=== PATIENT | male | born 1970 | race Caucasian/White ===

== ENCOUNTER 2020-05-15 19:49 | Observation (INO) | payer OTHER ==
[~2020-05-15] VITALS: Ht 185.4 cm; Wt 111.0 kg
[2020-05-15 20:30] LABS: HEMATOCRIT 43.6 % (39.0-50.0); HEMOGLOBIN 14.3 g/dl (14.0-18.0); IMMATURE GRANULOCYTES 0.3 % (0.0-5.0); MEAN CELL VOLUME 87.9 fL CALC (80.0-100.0); MEAN CORPUSCULAR HGB 28.8 pG CALC (26.0-32.0); MEAN CORPUSCULAR HGB CONC 32.8 g/dL CAL (32.0-36.0); NEUT# 5.27 thou/uL (1.82-7.42); RED BLOOD COUNT 4.96 mill/uL (4.70-6.10); RED CELL DISTRI WIDTH 12.7 % (11.5-15.5)
[2020-05-15 20:42] LABS: ALBUMIN 4.5 g/dL (3.2-5.0); ALKALINE PHOSPHATASE 67 u/l (38-126); ANION GAP 11 (6-22 (CALC)); BILIRUBIN, TOTAL 0.7 mg/dL (0.0-1.4); BUN 12 mg/dL (9-20); BUN/CREATININE RATIO 14 (12-20 (CALC)); CARBON DIOXIDE 27 mmol/l (22-30); CHLORIDE 103 mmol/l (95-108); CREATININE 0.8 mg/dL (0.7-1.3); GFR > 60 ML/MIN (>=60 (CALC)); GFR FOR AFR.AMER. > 60 ML/MIN (>=60 (CALC)); SGOT/AST 24 u/l (17-59); SODIUM 138 mmol/l (137-146); TOTAL PROTEIN 7.2 g/dL (6.3-8.2)
[2020-05-15 20:55] LABS: MYOGLOBIN 42 ng/mL (0 - 121)
[2020-05-15] MEDS ORDERED: DEPAKOTE500 MG PO (21:15)
[2020-05-15] MEDS ORDERED: LISINOPRIL2.5 MG PO (21:15)
[2020-05-15] MEDS ORDERED: ATOMOXETINE PO (21:18)
[2020-05-15] MEDS ORDERED: GABAPENTIN800 MG PO (21:19)
[2020-05-15 21:45] LABS: URINE BILIRUBIN - DIPSTICK NEGATIVE (NEGATIVE); URINE BLOOD DIPSTICK NEGATIVE (NEGATIVE); URINE COLOR YELLOW; URINE GLUCOSE - DIPSTICK NEGATIVE (NEGATIVE); URINE KETONE NEGATIVE (NEGATIVE); URINE LEUK ESTERASE NEGATIVE (NEGATIVE); URINE NITRITE - DIPSTICK NEGATIVE (Negative); URINE PH 6.5 (4.5-8.0); URINE PROTEIN - DIPSTICK NEGATIVE (NEG-TRACE); URINE SPECIFIC GRAVITY 1.025
[2020-05-15 22:25] VITALS: BP 127/69
[2020-05-16 00:25] VITALS: BP 124/71
[2020-05-16 04:30] VITALS: BP 106/60
[2020-05-16 06:53] LABS: HEMATOCRIT 41.9 % (39.0-50.0); HEMOGLOBIN 13.7 g/dl (14.0-18.0); IMMATURE GRANULOCYTES 0.3 % (0.0-5.0); MEAN CORPUSCULAR HGB 28.8 pG CALC (26.0-32.0); MEAN CORPUSCULAR HGB CONC 32.7 g/dL CAL (32.0-36.0); NEUT# 4.31 thou/uL (1.82-7.42); RED BLOOD COUNT 4.76 mill/uL (4.70-6.10); RED CELL DISTRI WIDTH 12.8 % (11.5-15.5)
[2020-05-16 07:03] LABS: ALBUMIN 3.9 g/dL (3.2-5.0); ALKALINE PHOSPHATASE 68 u/l (38-126); ANION GAP 13 (6-22 (CALC)); BILIRUBIN, TOTAL 0.6 mg/dL (0.0-1.4); BUN 11 mg/dL (9-20); BUN/CREATININE RATIO 13 (12-20 (CALC)); CALCULATED LDLCHOLESTEROL 115 mg/dL (62-129 (CALC)); CARBON DIOXIDE 26 mmol/l (22-30); CHLORIDE 103 mmol/l (95-108); CHOLESTEROL HDL RATIO 5.5 (<4.4 (CALC)); CREATININE 0.9 mg/dL (0.7-1.3); GFR > 60 ML/MIN (>=60 (CALC)); GFR FOR AFR.AMER. > 60 ML/MIN (>=60 (CALC)); HDL CHOLESTEROL 32 mg/dL (>=40); POTASSIUM 3.9 mmol/l (3.5-5.1); SGOT/AST 21 u/l (17-59); SODIUM 138 mmol/l (137-146); TOTAL CHOLESTEROL 179 mg/dl (0-199); TOTAL PROTEIN 6.2 g/dL (6.3-8.2); TOTAL TRIGLYCERIDES 157 mg/dl (30-149); VLDL CHOLESTROL 31 mg/dl (5-56 (CALC))
[2020-05-16 08:00] VITALS: BP 115/68
[2020-05-16 10:52] VITALS: BP 113/61
== END 2020-05-16 14:10 | DRG 312 ==
LOC: ED 19:49 → ED-I 21:32 → ED 21:52 → MS2 21:53
PROVIDERS: Emergency Medicine; Nurse Practitioner; ADMIT Internal Medicine; ATTEND Internal Medicine
DX: R55 Syncope and collapse (principal); R07.9 Chest pain, unspecified; I10 Essential (primary) hypertension; G40.909 Epilepsy, unspecified, not intractable, without status epilepticus; T42.76XA Underdosing of unspecified antiepileptic and sedative-hypnotic drugs, initial encounter; Z91.138 Patient's unintentional underdosing of medication regimen for other reason; Z20.822 Contact with and (suspected) exposure to COVID-19
CPT/HCPCS: G0378

== ENCOUNTER 2020-10-28 21:08 | Emergency (ER) | payer MEDICAID ==
[~2020-10-28] VITALS: Ht 185.4 cm; Wt 104.0 kg
[~2020-10-28 21:08] MED LIST: ATOMOXETINE PO; DEPAKOTE500 MG PO; GABAPENTIN800 MG PO; LISINOPRIL2.5 MG PO
[2020-10-28] MEDS ORDERED: ZPAK PO (23:17)
[2020-10-29 00:10] VITALS: BP 120/71
== END 2020-10-29 00:10 | disposition home or self-care (01) ==
LOC: ED 21:08
DX: U07.1 COVID-19 (principal); I10 Essential (primary) hypertension; G40.909 Epilepsy, unspecified, not intractable, without status epilepticus; F17.200 Nicotine dependence, unspecified, uncomplicated